=== PATIENT | female | born 1950 | race Caucasian/White ===

== ENCOUNTER 2017-10-17 11:25 | Observation (INO) | payer OTHER, MEDICARE ==
[~2017-10-17] VITALS: Ht 170.2 cm; Wt 49.9 kg
[~2017-10-17 11:25] MED LIST: TAMIFLU75 MG PO
--- NOTE | 2017-10-17 11:28 | ED SYNCOPE COMPLAINT ---
History of Present Illness General Chief Complaint: Syncope and Near-Syncope Stated Complaint: BIBA WITH A SYNCOPE Allergies Coded Allergies: NO KNOWN ALLERGIES (05/21/13) Reconcile Medications Oseltamivir Phosphate (Tamiflu) 75 MG CAP 1 TAB PO BID INFLUENZA (Thomas Ingram) Past History Travel History Traveled to [place] past 21 day No Medical History Neurological: migraine Psychosocial History What is your primary language Greek (Thomas Ingram) Progress Plan of Care: Orders Procedure Date/time Status EKG 10/17 1127 Active (Thomas Ingram) Departure Departure Condition: Stable Referrals: Sahara Alanis MD (PCP/Family) Departure Forms: Customer Survey General Discharge Information (Thomas Ingram)
--- NOTE | 2017-10-17 11:33 | ED SYNCOPE COMPLAINT ---
History of Present Illness General Chief Complaint: Syncope and Near-Syncope Stated Complaint: BIBA WITH A SYNCOPE Source: patient, EMS Exam Limitations: no limitations Vital Signs & Intake/Output Vital Signs & Intake/Output Vital Signs Date Time Temp Pulse Resp B/P B/P Pulse O2 O2 Flow FiO2 Mean Ox Delivery Rate 10/17 1539 84 18 106/45 96 10/17 1348 94 10/17 1324 77 101/52 10/17 1257 98/66 10/17 1214 95 Room Air 10/17 1151 97.8 82 22 84/62 98 Room Air Allergies Coded Allergies: NO KNOWN ALLERGIES (05/21/13) Reconcile Medications Nicotine (Nicotine Patch) 14 MG/24 HOUR PATCH.TD24 14 MG TOP DAILY SMOKING CESSATION Oseltamivir Phosphate (Tamiflu) 75 MG CAPSULE 1 CAP PO BID FLU LIKE SYMPTOMS (Reported) Triage Nurses Notes Reviewed? yes Timing: single episode today Precipitating Factors: lightheadedness Context: PATIENT WAS CHECKING OUT IN LINE AT [employer] Loss of Consciousness: brief (seconds) Associated Symptoms: weakness HPI: This is a 67-year-old female who denies any past medical history who presents via EMS after syncopal episode in the grocery store today. Patient doesn't even recall getting out of her car. According to bystanders she had a witnessed syncopal episode and hit her head. No blood thinners or any daily medications. Patient admits to feeling cold and having chills and cough for the past 2 days. He was noted on her EMR that she had picked up Yesterday. She denies any productive cough. She is a daily smoker. Question with history of COPD. Past History Travel History Traveled to [place] past 21 day No Medical History Any Pertinent Medical History? see below for history Neurological: migraine Surgical History Surgical History: non-contributory Psychosocial History What is your primary language Italian Family History Hx Contributory? No Review of Systems Review of Systems Constitutional: Reports: chills, fever, malaise, weakness. EENTM: Reports: no symptoms. Respiratory: Reports: cough, short of breath. Denies: sputum production. Cardiovascular: Denies: chest pain. GI: Denies: abdominal pain. Genitourinary: Reports: no symptoms. Musculoskeletal: Denies: back pain. Skin: Reports: no symptoms. Neurological/Psychological: Reports: no symptoms. All Other Systems: Reviewed and Negative Physical Exam Physical Exam General Appearance: alert, awake, cachetic, mild distress, thin, SALLOW APPEARANCE Head: OCCIPITAL HEMATOMA Eyes: Bilateral: normal appearance, PERRL, EOMI. Ears, Nose, Throat: normal pharynx, normal ENT inspection, hearing grossly normal Neck: IN C COLLAR Respiratory: normal breath sounds, chest non-tender, no respiratory distress Cardiovascular: regular rate/rhythm, normal peripheral pulses Gastrointestinal: normal bowel sounds, soft, non-tender Back: normal inspection, normal range of motion Extremities: normal inspection, normal capillary refill, normal range of motion, no edema Psychiatric: awake, alert, oriented x 3 Cranial Nerves: normal hearing, normal speech, PERRL Motor/Sensory: no motor/sensory deficits Core Measures ACS in differential dx? Yes CVA/TIA Diagnosis: No Sepsis Present: No Sepsis Focused Exam Completed? No Progress Differential Diagnosis: SYNCOPE, ORTHOSTATIC, ICH, CERVICAL FX, INFLUENZA, PNEUMONIA, SEPSIS Plan of Care: Orders Procedure Date/time Status Regular Diet 10/18 B Active Regular Diet 10/17 D Complete Patient Data 10/[address] in observation 10/17 1611 Active ED Holding Orders 10/17 1611 Active Vital Signs 10/17 1611 Active Code Status 10/17 1611 Active LACTIC ACID 10/17 1432 Active Add-on Test (ER Only) 10/17 1344 Active RT ED ORDERS 10/17 1339 Complete Add-on Test (ER Only) 10/17 1308 Active TROPONIN LEVEL 10/17 1220 Complete D-DIMER 10/17 1220 Complete PARTIAL THROMBOPLASTIN TIME 10/17 1134 Complete PROTHROMBIN TIME 10/17 1134 Complete Telemetry/Transport Conductor 10/17 1132 Active RAPID VIRAL INFLUENZA A 10/17 1132 Complete BLOOD CULTURE 10/17 1132 Active VIRAL CULTURE 10/17 1132 Active URINE DRUGS OF ABUSE 10/17 1132 Active URINALYSIS 10/17 1132 Active LACTIC ACID 10/17 1132 Complete ETHANOL 10/17 1132 Complete COMPREHENSIVE METABOLIC PANEL 10/17 1132 Complete CBC WITHOUT DIFFERENTIAL 10/17 1132 Complete EKG 10/17 1127 Active Current Medications Sig/Susana Start time Last Medication Dose Stop Time Status Admin Oseltamivir Phosphate 30 MG BID 10/17 1352 AC (Tamiflu) 10/21 1351 Laboratory Tests 10/17/17 1220: Anion Gap 15, Estimated GFR > 60, BUN/Creatinine Ratio 25.0, Glucose 94, Lactic Acid 2.0, Calcium 8.9, Total Bilirubin 0.6, AST 24, ALT 22, Alkaline Phosphatase 80, Troponin I < 0.01, Total Protein 7.2, Albumin 4.4, Globulin 2.8, Albumin/ Globulin Ratio 1.6, PT 11.9, INR 1.13, APTT 27, D-Dimer High Sensitivty 350 H, CBC w Diff NO MAN DIFF REQ, RBC 4.51, MCV 97.7, MCH 33.3 H, MCHC 34.1, RDW 12.8 , MPV 9.1, Gran % 73.3, Lymphocytes % 16.7 L, Monocytes % 9.9 H, Eosinophils % 0.1, Basophils % 0, Absolute Granulocytes 3.8, Absolute Lymphocytes 0.9 L, Absolute Monocytes 0.5, Absolute Eosinophils 0, Absolute Basophils 0, Serum Alcohol < 10.0 10/17/17 1132: Virus Culture Pending Microbiology 10/17 1320 NASOPHARYN: Influenza Virus A & B Rapid Smear - COMP INFLUENZA TYPE B 10/17 1200 BLOOD: Blood Culture - RECD 10/17 1137 BLOOD: Blood Culture - RECD 2:46 PM PENDING TELE OBS APPROVAL. Diagnostic Imaging: Viewed by Me: Radiology Read, CT Scan. Discussed w/RAD: Radiology Read, CT Scan. Radiology Impression: PATIENT: PAIGE GARDNER PRESENT AGE: 67 PATIENT ACCOUNT NO: [id number] : 50 LOCATION: [facility] ORDERING PHYSICIAN: Seda Ontiveros MD SERVICE DATE: 10/17/17 EXAM TYPE: CAT - CT CERV SPINE WO IV CONTRAST; CT HEAD WO IV CONTRAST EXAMINATION: CT HEAD AND CT OF THE CERVICAL SPINE WITHOUT CONTRAST CLINICAL INFORMATION: History of fall, syncope. Occipital hematoma. Headache. COMPARISON: None. TECHNIQUE: Noncontrast CT scan of the head and cervical spine, using standard protocol. Multiplanar reconstructed images are obtained. Multiplanar reconstructed images are also obtained. DLP: 947.98 mGy-cm. FINDINGS: CT OF THE HEAD: The ventricles are moderately enlarged and appear somewhat disproportionately prominent as compared to the overlying sulci. Differential includes moderate atrophy versus normal pressure hydrocephalus. No evidence of intra-axial mass, mass effect, extra-axial fluid collection, midline shift, acute intraparenchymal hemorrhage and/or acute infarction present. Both orbital globes, extraocular muscles, optic nerves appear bilaterally symmetric and are unremarkable. Small air-fluid level is noted within the left maxillary sinus, sphenoid sinus and mild soft tissue thickening within the nasal cavity. Differential includes intrasinus hemorrhage related to trauma versus acute sinusitis. CT OF THE CERVICAL SPINE: Multilevel degenerative spondylosis related changes are noted throughout the entire cervical spine with evidence of bilateral fusion of facet joints at C2-3. Significant facet degenerative arthritic changes are noted within the remainder of the cervical spine. There is nonspecific straightening of the cervical spine present. There is no evidence of any prespinal soft tissue hematoma present. Emphysematous disease is noted at both lung apices with superimposed nonspecific pleuroparenchymal opacity at right lung apex, not optimally characterized. Note is also made of numerous oval-shaped soft tissue densities throughout the soft tissue neck bilaterally, may represent prominent vessels versus lymph nodes. Further differentiation cannot be made on this nonenhanced study. IMPRESSION: 1. No acute intracranial pathology. Ventriculomegaly, appears somewhat disproportionate to the sulcal prominence, may represent moderate atrophy versus normal pressure hydrocephalus. 2. No CT evidence of any acute fracture no subluxation or dislocation or prespinal soft tissue hematoma present at the cervical spine. 3. Emphysematous disease within the visualized both lung apices with superimposed nonspecific pleuroparenchymal opacity at right lung apex, not optimally characterized. 4. Numerous oval-shaped soft tissue densities are noted within the neck bilaterally, may represent prominent vessels versus lymph nodes. Further differentiation cannot be made on this nonenhanced study. DICTATED BY: Rita Byrne MD DATE/TIME DICTATED:10/17/171245 TRANSMISSION AND COORDINATION ENGINEER:DIEGO DATE/TIME TRANSCRIBED:10/17/171245 CONFIDENTIAL, DO NOT COPY WITHOUT APPROPRIATE AUTHORIZATION. <Electronically signed in Other Vendor System> SIGNED BY: Rita Byrne MD 10/17/17 1330 CXR Impression: PATIENT: PAIGE GARDNER PRESENT AGE: 67 PATIENT ACCOUNT NO: [id number] : 50 LOCATION: [facility] ORDERING PHYSICIAN: Seda Ontiveros MD SERVICE DATE: 10/17/171132 EXAM TYPE: RAD - XRY -PORTABLE CHEST XRAY EXAMINATION: XR PORTABLE CHEST CLINICAL INFORMATION: Rule out pneumonia. Cough and right ureters. COMPARISON: There are no prior studies for comparison at this time. TECHNIQUE: Portable frontal view of the chest was obtained. FINDINGS: The lungs are hyperinflated. No focal areas of airspace opacification are noted. There is no evidence of pleural effusion or pulmonary vascular congestion or cardiomegaly. IMPRESSION: No acute cardiopulmonary findings. DICTATED BY: Abby Morales MD DATE/TIME DICTATED:10/17/171405 TRANSMISSION AND COORDINATION ENGINEER:DIEGO DATE/TIME TRANSCRIBED:10/17/171405 CONFIDENTIAL, DO NOT COPY WITHOUT APPROPRIATE AUTHORIZATION. <Electronically signed in Other Vendor System> SIGNED BY: Abby Morales MD 10/17/17 1411 Initial ED EKG: NSR Rhythm Strip: normal sinus rhythm Departure Departure Time of Disposition: 161 Disposition: STILL A PATIENT Condition: Stable Clinical Impression Primary Impression: Syncope and collapse Secondary Impressions: Concussion, Influenza A, Lactic acidosis Referrals: Sahara Alanis MD (PCP/Family) Departure Forms: Customer Survey General Discharge Information Prescriptions: Current Visit Scripts Nicotine (Nicotine Patch) 14 MG TOP DAILY #2 BOX Observation Note Spoke With: Maurilio VILLALPANDO,[facility] Physician Advisor Notified: KAREN ANDREA DO Place Patient In: Non-ED OBS Care Area Rationale for Observation: My rational for observation is as follows [TELE MONITOR, SERIAL EKG/TROPONIN, TAMIFLU, TRC/NEBS, CARDIOLOGY CONSULTATION. I FEEL PATIENT APPEARS STABLE FOR DISCHARGE IN 24-48 HRS IF CARDIAC W/U NEGATIVE. SHE HAS ALREADY HAD 2 DOSES OF TAMIFLU PRIOR TO ED VISIT].
[2017-10-17 12:35] LABS: ABSOLUTE BASOPHIL COUNT 0 /CUMM (0.0-0.2); ABSOLUTE EOSINOPHIL COUNT 0 /CUMM (0.0-0.7); ABSOLUTE GRANULOCYTE CT 3.8 /CUMM (1.4-6.5); ABSOLUTE LYMPH COUNT 0.9 /CUMM (1.2-3.4); ABSOLUTE MONOCYTE COUNT 0.5 /CUMM (0.10-0.60); BASOPHIL % 0 % (0.0-2.0); EOSINOPHIL % 0.1 % (0-5); GRANULOCYTE % 73.3 % (42.2-75.2); MEAN CORPUSCULAR HGB 33.3 PG (27.0-31.0); MEAN CORPUSCULAR HGB CONC 34.1 G/DL (33.0-37.0); MEAN CORPUSCULAR VOLUME 97.7 FL (81.0-99.0); MEAN PLATELET VOLUME 9.1 FL (7.4-10.4); PLATELET COUNT 149 /CUMM (130-400); RBC DISTRIBUTION WIDTH 12.8 % (11.5-14.5); RED BLOOD CELL CT 4.51 /CUMM (4.20-5.40); WHITE BLOOD CELL COUNT 5.3 /CUMM (4.8-10.8)
[2017-10-17 13:01] LABS: PT 11.9 SEC (9.4-12.5); PTT 27 SEC (25-37)
--- NOTE | 2017-10-17 13:30 | CT SCAN REPORT ---
EXAMINATION: CT HEAD AND CT OF THE CERVICAL SPINE WITHOUT CONTRAST CLINICAL INFORMATION: History of fall, syncope. Occipital hematoma. Headache. COMPARISON: None. TECHNIQUE: Noncontrast CT scan of the head and cervical spine, using standard protocol. Multiplanar reconstructed images are obtained. Multiplanar reconstructed images are also obtained. DLP: 947.98 mGy-cm. FINDINGS: CT OF THE HEAD: The ventricles are moderately enlarged and appear somewhat disproportionately prominent as compared to the overlying sulci. Differential includes moderate atrophy versus normal pressure hydrocephalus. No evidence of intra-axial mass, mass effect, extra-axial fluid collection, midline shift, acute intraparenchymal hemorrhage and/or acute infarction present. Both orbital globes, extraocular muscles, optic nerves appear bilaterally symmetric and are unremarkable. Small air-fluid level is noted within the left maxillary sinus, sphenoid sinus and mild soft tissue thickening within the nasal cavity. Differential includes intrasinus hemorrhage related to trauma versus acute sinusitis. CT OF THE CERVICAL SPINE: Multilevel degenerative spondylosis related changes are noted throughout the entire cervical spine with evidence of bilateral fusion of facet joints at C2-3. Significant facet degenerative arthritic changes are noted within the remainder of the cervical spine. There is nonspecific straightening of the cervical spine present. There is no evidence of any prespinal soft tissue hematoma present. Emphysematous disease is noted at both lung apices with superimposed nonspecific pleuroparenchymal opacity at right lung apex, not optimally characterized. Note is also made of numerous oval-shaped soft tissue densities throughout the soft tissue neck bilaterally, may represent prominent vessels versus lymph nodes. Further differentiation cannot be made on this nonenhanced study. IMPRESSION: 1. No acute intracranial pathology. Ventriculomegaly, appears somewhat disproportionate to the sulcal prominence, may represent moderate atrophy versus normal pressure hydrocephalus. 2. No CT evidence of any acute fracture no subluxation or dislocation or prespinal soft tissue hematoma present at the cervical spine. 3. Emphysematous disease within the visualized both lung apices with superimposed nonspecific pleuroparenchymal opacity at right lung apex, not optimally characterized. 4. Numerous oval-shaped soft tissue densities are noted within the neck bilaterally, may represent prominent vessels versus lymph nodes. Further differentiation cannot be made on this nonenhanced study.
--- NOTE | 2017-10-17 14:11 | RADIOLOGY REPORT ---
EXAMINATION: XR PORTABLE CHEST CLINICAL INFORMATION: Rule out pneumonia. Cough and right ureters. COMPARISON: There are no prior studies for comparison at this time. TECHNIQUE: Portable frontal view of the chest was obtained. FINDINGS: The lungs are hyperinflated. No focal areas of airspace opacification are noted. There is no evidence of pleural effusion or pulmonary vascular congestion or cardiomegaly. IMPRESSION: No acute cardiopulmonary findings.
--- NOTE | 2017-10-17 17:14 | History & Physical ---
Nancy Quinonez MD 10/17/17 1632: General Information and HPI MD Statement: I have seen and personally examined PAIGE GARDNER and documented this H&P. The patient is a 67 year old F who presented with a patient stated chief complaint of [syncope]. Source of Information: patient Exam Limitations: no limitations History of Present Illness: Patient is a 67-year-old female with no past medical history per patient presenting with chief complaint of fainting. Patient states that she started feeling ill 2 days prior to admission. States that she initially had a productive cough with clear phlegm, rhinorrhea, chest congestion. Patient states one day prior to admission she started feeling worse with subjective fever, chills shortness of breath and body aches. Patient states that she was not checked or the flu however was prescribed Tamiflu by a family member which she started one day prior to admission. Patient states that she has taken 2 doses of Tamiflu prior to coming to the hospital. Patient states she came to the emergency room after she had gone to the grocery store and had fainted. Patient notes that she felt lightheaded at the grocery store and felt dizzy and short of breath prior to passing out. Patient at that time was lifting groceries out of the basket and bending down. Patient denies any chest pain, palpitations, visual disturbances, numbness or tingling or feeling of warmth prior to the episode. Patient notes that she hit her head and has a small bump on the back of her head. Patient denies any bleeding or cuts/scraps. Patient is unsure of how long she was unconscious. Patient denies any confusion after the episode. Denies any metallic taste in her mouth or urinary or fecal incontinence. Patient is unsure if she had any tremors or shaking during the episode. Patient states that she has been eating well and trying to stay hydrated. Patient states that she ate breakfast prior to going to the grocery store. Patient denies any sick contacts at home or at work. Patient works at an accounting office. Patient smokes cigarettes approximately 1 pack per day for the past 51 years. Patient states that she drinks alcohol occasionally approximately once a month. Patient denies any use use of any recreational drugs. Past medical history: Patient denies any medical illnesses in the past Past surgical history: None Medications: Tamiflu, [id number] vitamin C, biotin Allergies: Denies any drug, food, or environmental allergies Patient's primary care physician is Dr. Alanis. Allergies/Medications Allergies: Coded Allergies: NO KNOWN ALLERGIES (05/21/13) Home Med list Nicotine (Nicotine Patch) 14 MG/24 HOUR PATCH.TD24 14 MG TOP DAILY SMOKING CESSATION Oseltamivir Phosphate (Tamiflu) 75 MG CAPSULE 1 CAP PO BID FLU LIKE SYMPTOMS (Reported) Past History Travel History Traveled to [place] past 21 day No Medical History Neurological: migraine Surgical History Surgical History: none Past Family/Social History Psychosocial History ETOH Use: occasional use Functional Ability ADLs Independent: dressing, eating, toileting, bathing. Ambulation: independent IADLs Independent: shopping, housework, finances, food prep, telephone, transportation , medication admin. Employment History Employment Employed Review of Systems Review of Systems Constitutional: Reports: chills, diaphoresis, fever, weakness. Cardiovascular: Reports: syncope. Denies: chest pain, edema, orthopena, palpitations, peripheral edema. Respiratory: Reports: cough, short of breath, sputum production. Denies: hemoptysis. GI: Reports: bowel incontinence. Genitourinary: Reports: no symptoms. Musculoskeletal: Reports: muscle pain. Skin: Reports: no symptoms. Neurological/Psychological: Reports: see HPI, headache. Hematologic/Endocrine: Reports: no symptoms. Immunologic/Allergic: Reports: no symptoms. Exam & Diagnostic Data Last 24 Hrs of Vital Signs/I&O Vital Signs Date Time Temp Pulse Resp B/P B/P Pulse O2 O2 Flow FiO2 Mean Ox Delivery Rate 10/17 1539 84 18 106/45 96 10/17 1348 94 10/17 1324 77 101/52 10/17 1257 98/66 10/17 1214 95 Room Air 10/17 1151 97.8 82 22 84/62 98 Room Air Intake & Output 10/17 1600 10/17 0800 10/17 0000 Intake Total 1000 Output Total Balance 1000 Intake, IV 1000 Patient 110 lb Weight Weight Reported by Patient Measurement Method Physical Exam General Appearance Alert, Oriented X3, Cooperative, No Acute Distress Skin No Rashes, No Breakdown, No Significant Lesion Sepsis Skin Exam (color): Normal for Ethnicity HEENT Atraumatic, PERRLA, EOMI, Mucous Membr. moist/pink Neck Supple, No JVD, No thryomegaly, +2 Carotid Pulse wo Bruit, No LAD Lymphatic Cervical nl Cardiovascular Regular Rate, Normal S1, Normal S2, No Murmurs Lungs Clear to Auscultation, Normal Air Movement Abdomen Normal Bowel Sounds, Soft, No Tenderness Neurological Normal Gait, Normal Speech, Strength at 5/5 X4 Ext, Sensation Intact, Cranial Nerves 3-12 NL Extremities No Clubbing, No Cyanosis, No Edema, Normal Pulses, No Tenderness/ Swelling Vascular Normal Pulses, Pulses Symmetrical Last 24 Hrs of Labs/Faisal: Laboratory Tests 10/17/17 1220: Anion Gap 15, Estimated GFR > 60, BUN/Creatinine Ratio 25.0, Glucose 94, Lactic Acid 2.0, Calcium 8.9, Total Bilirubin 0.6, AST 24, ALT 22, Alkaline Phosphatase 80, Troponin I < 0.01, Total Protein 7.2, Albumin 4.4, Globulin 2.8, Albumin/ Globulin Ratio 1.6, PT 11.9, INR 1.13, APTT 27, D-Dimer High Sensitivty 350 H, CBC w Diff NO MAN DIFF REQ, RBC 4.51, MCV 97.7, MCH 33.3 H, MCHC 34.1, RDW 12.8 , MPV 9.1, Gran % 73.3, Lymphocytes % 16.7 L, Monocytes % 9.9 H, Eosinophils % 0.1, Basophils % 0, Absolute Granulocytes 3.8, Absolute Lymphocytes 0.9 L, Absolute Monocytes 0.5, Absolute Eosinophils 0, Absolute Basophils 0, Serum Alcohol < 10.0 10/17/17 1132: Virus Culture Pending Microbiology 10/17 1320 NASOPHARYN: Influenza Virus A & B Rapid Smear - COMP INFLUENZA TYPE B 10/17 1200 BLOOD: Blood Culture - RECD 10/17 1137 BLOOD: Blood Culture - RECD Diagnostic Data EKG Results Normal sinus rhythm with heart rate of 78, left axis deviation, nonspecific T- wave changes, T wave inversion in V2 Assessment/Plan Assessment: Patient is a 67-year-old female with no past medical history presenting after having a syncopal episode at the grocery store and having symptoms consistent with the flu with a rapid flu swab positive for influenza type B on this admission currently on Tamiflu day 2. Patient presented with hypotension and tachypnea with respiration rate of greater than 20. Patient responded to 2 1L normal saline boluses. Patient's chest x-ray and head CT were negative for any acute findings. Patient in the ED received 1 L normal saline 2, DuoNeb treatment, IV Solu- Medrol 125 mg 1, Tamiflu 30 mg, Tylenol 975 mg by mouth 1 On admission: Vitals: MAXIMUM TEMPERATURE of 97.8, heart rate: 84, respiration rate: 18, blood pressure: Initially 84/62 which increased to 106/45 after 2 L normal saline boluses, saturating at 96% on room air Labs: WBC: 5.3, H&H 15.0 and 44.0, platelets 149 Sodium: 137, potassium 4.2 chloride 99, bicarbonate 23, BUN 20, creatinine 0.8, glucose 94, lactic acid 2.0, calcium 8.9, LFTs within normal limits, troponin less than 0.01, dimer 350, serum alcohol less than 10.0, Flu swab: Patient positive for influenza type B Imaging: Chest x-ray: No acute cardiopulmonary findings Head CT and neck CT: 1. No acute intracranial pathology. Ventriculomegaly, appears somewhat disproportionate to the sulcal prominence, may represent moderate atrophy versus normal pressure hydrocephalus. 2. No CT evidence of any acute fracture no subluxation or dislocation or prespinal soft tissue hematoma present at the cervical spine. 3. Emphysematous disease within the visualized both lung apices with superimposed nonspecific pleuroparenchymal opacity at right lung apex, not optimally characterized. 4. Numerous oval-shaped soft tissue densities are noted within the neck bilaterally, may represent prominent vessels versus lymph nodes. Further differentiation cannot be made on this nonenhanced study. Patient will be observed on the telemetry floor for the followin. Syncope- likely related to dehydration and the flu. Patient presented with hypotension and tachypnea responding to fluids. Other causes of syncope include neurocardiogenic causes which should be ruled out and patient will be observed on telemetry. Patient's current EKG shows nonspecific T wave changes with negative trops. - continue to monitor on telemetry - serial EKG and trops - IV fluid hydration - orthostatic vitals - neurochecks q4h 2. Influenza Type B - Patient tested positive for influenza. Patient was presumptively placed on tamiflu 1 day prior to this admission. - Tamiflu 30mg BID - TRC - Respiratory precautions 3. Current smoker - 50+ pack year smoking history. CT neck showing soft tissue densities which may represent lymphadenopathy. However this may be reactive lymphadenopathy secondary to viral infection. Patient should follow up with her pcp for further evaluation once her acute symptoms resolve. DVT PPx: ALPS, lovenox Diet: Regular Code: Full Code As Ranked By This Provider Problem List: 1. Syncope and collapse 2. Influenza due to influenza virus, type B Core Measures/Misc (05/27) Acute Coronary Syndrome ACS Diagnosis: No Congestive Heart Failure Congestive Heart Failure Diagnosis No Cerebrovascular Accident CVA/TIA Diagnosis: No VTE (View Protocol) VTE Risk Factors No risk factors No Mechanical VTE Prophylaxis d/t N/A MechProphylax Ordered No VTE Pharm Prophylaxis d/t NA PharmProphylax ordered Sepsis (View protocol) Sepsis Present: No Yonatan Mohr MD 10/17/17 1730: Resident Review Statement Resident Statement: examined this patient, discussed with investigator internal affairs, agreed with investigator internal affairs, reviewed EMR data (avail), discussed with nursing, discussed with case mgmt, reviewed images, amended to note Other Findings: 67-year-old female with no significant past medical history, presented to the emergency department via ambulance after having a witnessed syncopal episode at the grocery store today. Patient remembers the event as feeling lightheaded and dizzy, and then she does not remember afterwards. She hit the back of her head during the event, and is now complaining of pain and some swelling in her scalp. She does not have any vision changes, difficulty with speech or understanding, any numbness/tingling/weakness of any part of her body, or incontinence. Of note, she did mention that she had some stool leakage while she was in the ED. There was no tongue bite, up rolling of eyes, falling from mouth, jerking movements of limbs noted during the incident. She does not take any blood thinners and her only medication is Vitamin C and Biotin, except for 2 doses of Tamiflu so far. Also, patient mentioned that she was suffering from cough and shortness of breath since Sunday, associated with body ache, and was taking Tamiflu since yesterday (total 2 doses taken so far). She has been eating and drinking well at home. Patient's primary care physician is Dr. Alanis, but the last time she visited the PCP was 2 years ago. Her vitals on presentation were blood pressure 84/62, pulse 82, temperature 97.8 , respiration 22, SPO2 98% on room air. She received 2 L of normal saline, and 125 mg of IV methylprednisolone, and nebulizations in the ED. CAT scan of the head was negative for any acute intracranial pathology. No CT evidence of any acute fracture or subluxation or dislocation or soft tissue hematoma at cervical spine level. CXR is negative for acute pathology. She is currently being observed in telemetry floor for the following issues: # Syncope Patient's symptoms are suggestive of syncope with loss of consciousness. Syncope itself has broad differential diagnosis for the most important ones being Cardiologic, neurological or the common ones like orthostatic hypotension. She will need further monitoring and regular checks in the telemetry unit. * Observe in telemetry floor * Regular vitals, input/output * Regular neurochecks * Watch for any arrhythmias * Transient troponin and EKG for at least 2 times. Of note, the first one is negative. * Further neurodiagnostic testing or cardiology testing are deferred unless patient develops focal neurologic deficit or changes in EKG/trop. #Nicotine dependence Patient has a long-standing history of smoking starting at the age of 16, and with at least a pack per day, minutes to at least [id number] of smoking history. This puts her at increased risk of any cancer, particularly lung cancers. She was noted to have cervical lymphadenopathy, and would benefit from a screening CAT scan of the lung/neck. Orders have been placed accordingly please follow. In the meantime, nicotine patch has been ordered. #Influenza type B infection We'll continue Tamiflu started from her home, and have her on appropriate precautions. #Diet: Regular diet #DVT ppx: SC Lovenox #Code status: Full code
--- NOTE | 2017-10-17 17:35 | PN- Att Addend ---
Attending Addendum Attending Brief Note Patient seen and examined. Plan of care discussed with the medical team and the patient. Available lab work and radiology test reports were reviewed. Patient seen and examined in the emergency room. Patient 67-year-old female with past history of migraine and one pack per day smoking history who presents with the 4 -5 days history of fever, cough, chills. She did not receive a flu shot last fall. Today while shopping she had a brief episode of for him to be. Amylase was called and she was transported to emergency room. She does not recall hitting her head. See interns history physical for past medical history, psychosocial history and medication history. Family history was reviewed and is noncontributory. As noted above patient smokes one pack per day. Vital Signs Date Time Temp Pulse Resp B/P B/P Pulse O2 O2 Flow FiO2 Mean Ox Delivery Rate 10/17 1539 84 18 106/45 96 10/17 1348 94 10/17 1324 77 101/52 10/17 1257 98/66 10/17 1214 95 Room Air 10/17 1151 97.8 82 22 84/62 98 Room Air Intake & Output 10/17 1600 10/17 0800 10/17 0000 Intake Total 1000 Output Total Balance 1000 Intake, IV 1000 Patient 110 lb Weight Weight Reported by Patient Measurement Method Exam: General: Patient awake alert oriented without any distress CVS: S1 plus S2 without any murmur or gallops Chest: Few scattered crepitation without any wheeze in left lower chest. There is no respiratory distress. Abdomen: Soft non-tender, bowel sound present, no guarding or rebound APPOINTMENT MANAGER: Awake alert oriented without any focal neuro deficit and follows commands appropriately Extremities: No edema; no clubbing or cyanosis noted; no sign of trauma Laboratory Tests 10/17 10/17 1220 1132 Chemistry Sodium (137 - 145 mmol/L) 137 Potassium (3.5 - 5.1 mmol/L) 4.2 Chloride (98 - 107 mmol/L) 99 Carbon Dioxide (22 - 30 mmol/L) 23 Anion Gap (5 - 16) 15 BUN (7 - 17 mg/dL) 20 H Creatinine (0.5 - 1.0 mg/dL) 0.8 Estimated GFR (>60 ml/min) > 60 BUN/Creatinine Ratio (7 - 25 %) 25.0 Glucose (65 - 99 mg/dL) 94 Lactic Acid (0.7 - 2.1 mmol/L) 2.0 Calcium (8.4 - 10.2 mg/dL) 8.9 Total Bilirubin (0.2 - 1.3 mg/dL) 0.6 AST (14 - 36 U/L) 24 ALT (9 - 52 U/L) 22 Alkaline Phosphatase (<127 U/L) 80 Troponin I (< 0.11 ng/ml) < 0.01 Total Protein (6.3 - 8.2 g/dL) 7.2 Albumin (3.5 - 5.0 g/dL) 4.4 Globulin (1.9 - 4.2 gm/dL) 2.8 Albumin/Globulin Ratio (1.1 - 2.2 %) 1.6 Coagulation PT (9.4 - 12.5 SEC) 11.9 INR (0.90 - 1.19) 1.13 APTT (25 - 37 SEC) 27 D-Dimer High Sensitivty (0 - 243 ng/ml) 350 H Hematology CBC w Diff NO MAN DIFF REQ WBC (4.8 - 10.8 /CUMM) 5.3 RBC (4.20 - 5.40 /CUMM) 4.51 Hgb (12.0 - 16.0 G/DL) 15.0 Hct (37 - 47 %) 44.0 MCV (81.0 - 99.0 FL) 97.7 MCH (27.0 - 31.0 PG) 33.3 H MCHC (33.0 - 37.0 G/DL) 34.1 RDW (11.5 - 14.5 %) 12.8 Plt Count (130 - 400 /CUMM) 149 MPV (7.4 - 10.4 FL) 9.1 Gran % (42.2 - 75.2 %) 73.3 Lymphocytes % (20.5 - 51.1 %) 16.7 L Monocytes % (1.7 - 9.3 %) 9.9 H Eosinophils % (0 - 5 %) 0.1 Basophils % (0.0 - 2.0 %) 0 Absolute Granulocytes (1.4 - 6.5 /CUMM) 3.8 Absolute Lymphocytes (1.2 - 3.4 /CUMM) 0.9 L Absolute Monocytes (0.10 - 0.60 /CUMM) 0.5 Absolute Eosinophils (0.0 - 0.7 /CUMM) 0 Absolute Basophils (0.0 - 0.2 /CUMM) 0 Serology Virus Culture Pending Toxicology Serum Alcohol (<10 MG/DL) < 10.0 Microbiology Date/Time Procedure - Status Source Growth 10/17 1320 Influenza Virus A & B Rapid Smear - COMP NASOPHARYN INFLUENZA TYPE B 10/17 1200 Blood Culture - RECD BLOOD 10/17 1137 Blood Culture - RECD BLOOD CT head and cervical spine 1. No acute intracranial pathology. Ventriculomegaly, appears somewhat disproportionate to the sulcal prominence, may represent moderate atrophy versus normal pressure hydrocephalus. 2. No CT evidence of any acute fracture no subluxation or dislocation or prespinal soft tissue hematoma present at the cervical spine. 3. Emphysematous disease within the visualized both lung apices with superimposed nonspecific pleuroparenchymal opacity at right lung apex, not optimally characterized. 4. Numerous oval-shaped soft tissue densities are noted within the neck bilaterally, may represent prominent vessels versus lymph nodes. Further differentiation cannot be made on this nonenhanced study. Chest x-ray Did not reveal any acute cardiopulmonary findings. Note that the influenza test was positive for type B. Assessment plan * Influenza- plan to start Tamiflu * Syncopal episode- likely secondary to influenza, fever and possibly dehydration. No signs of arrhythmia is noted. We'll place on telemetry to rule out any arrhythmia for at least 24 hours. * History of smoking- prescribe a nicotine patch * Possible lymph node enlargement in neck - given history of smoking since age [address] chest and neck with contrast to rule out underlying lung cancer.
[2017-10-17] MEDS ORDERED: TAMIFLU75 M1 PO (20:22)
[2017-10-17 21:06] VITALS: BP 82/48
[2017-10-17 21:08] VITALS: BP 82/48
[2017-10-18 06:09] VITALS: BP 100/57
--- NOTE | 2017-10-18 07:38 | PN-Observation ---
See Addendum Observation Note Observation Note _ I have personally examined PAIGE GARDNER. her disposition is uncertain at this time. Before a determination can be made, she requires continued observation for the following reasons [syncope]. Assessment/Plan Assessment: Patient is a 67-year-old female with no past medical history presenting after having a syncopal episode at the grocery store and having symptoms consistent with the flu with a rapid flu swab positive for influenza type B on this admission currently on Tamiflu day 2. Patient presented with hypotension and tachypnea with respiration rate of greater than 20. Patient responded to 2 1L normal saline boluses. Patient's chest x-ray and head CT were negative for any acute findings. Patient in the ED received 1 L normal saline 2, DuoNeb treatment, IV Solu- Medrol 125 mg 1, Tamiflu 30 mg, Tylenol 975 mg by mouth 1 On admission: Vitals: MAXIMUM TEMPERATURE of 97.8, heart rate: 84, respiration rate: 18, blood pressure: Initially 84/62 which increased to 106/45 after 2 L normal saline boluses, saturating at 96% on room air Labs: WBC: 5.3, H&H 15.0 and 44.0, platelets 149 Sodium: 137, potassium 4.2 chloride 99, bicarbonate 23, BUN 20, creatinine 0.8, glucose 94, lactic acid 2.0, calcium 8.9, LFTs within normal limits, troponin less than 0.01, dimer 350, serum alcohol less than 10.0, Flu swab: Patient positive for influenza type B Imaging: Chest x-ray: No acute cardiopulmonary findings Head CT and neck CT: 1. No acute intracranial pathology. Ventriculomegaly, appears somewhat disproportionate to the sulcal prominence, may represent moderate atrophy versus normal pressure hydrocephalus. 2. No CT evidence of any acute fracture no subluxation or dislocation or prespinal soft tissue hematoma present at the cervical spine. 3. Emphysematous disease within the visualized both lung apices with superimposed nonspecific pleuroparenchymal opacity at right lung apex, not optimally characterized. 4. Numerous oval-shaped soft tissue densities are noted within the neck bilaterally, may represent prominent vessels versus lymph nodes. Further differentiation cannot be made on this nonenhanced study. Patient will be observed on the telemetry floor for the followin. Syncope- likely related to dehydration and the flu. Patient presented with hypotension and tachypnea responding to fluids. Other causes of syncope include neurocardiogenic causes which should be ruled out and patient will be observed on telemetry. Patient's EKG and trops remained negative x 3. Patient had no events on telemetry. Patient's blood pressure improved with IV hydration. Patient noted she always remains borderline hypotensive. - Patient stable for discharge today 2. Influenza Type B - Patient tested positive for influenza. Patient was presumptively placed on tamiflu 1 day prior to this admission. - Patient to continue Tamiflu 30mg BID for a total of 5 days - TRC - Respiratory precautions 3. Current smoker - 50+ pack year smoking history. CT neck showing soft tissue densities which may represent lymphadenopathy. However this may be reactive lymphadenopathy secondary to viral infection. Patient should follow up with her pcp for further evaluation once her acute symptoms resolve. - Patient counseled on smoking cessation - Patient given nictoine patches - Patient will start attending smoking cessation classes on 10/24. 3. Migraine - patient reports occasional migraines - 2 to 3 per year. During this admission she experienced a migraine with nausea and vomitting which resolved with fiorcet. -Patient should follow up with pcp if migraines continue or increase in frequency or severity DVT PPx: ALPS, lovenox Diet: Regular Code: Full Code Dispo: Discharge home today Problem List: 1. Syncope and collapse 2. Influenza due to influenza virus, type B Subjective Follow-up For: Syncopal episode Influenza Type B Subjective: Patient seen and examined today. Patient reports improvement in breathing. Denies feeling dizzy, lightheaded, short of breath, chest pain or palpitaitons. Patient denies any pain. Patient later in the day had some nausea and a severe headache with sensitivity to light and sound. Headache was around her forehead and eyes. No acute events overnight Review of Systems Constitutional: Reports: no symptoms. Cardiovascular: Reports: no symptoms. Respiratory: Reports: no symptoms. Gastrointestinal: Reports: nausea. Genitourinary: Reports: no symptoms. Musculoskeletal: Reports: no symptoms. Skin: Reports: no symptoms. Neurological/Psychological: Reports: headache. Hematologic/Endocrine: Reports: no symptoms. Immunologic/Allergic: Reports: no symptoms. Objective Last 24 Hrs of Vital Signs/I&O Vital Signs Date Time Temp Pulse Resp B/P B/P Pulse O2 O2 Flow FiO2 Mean Ox Delivery Rate 10/18 1439 97.9 68 18 102/64 95 Room Air 10/18 0609 97.6 72 20 100/57 96 10/18 0000 98 Room Air Room Air 10/178 72 82/48 10/17 210 98.1 72 18 82/48 94 10/17 2017 67 94/48 10/17 2016 97.6 67 16 94/48 92 Room Air Intake & Output 10/18 1600 10/18 0800 10/18 0000 Intake Total 500 200 175 Output Total Balance 500 200 175 Intake, IV 75 Intake, Oral 500 200 100 Patient 110 lb Weight Physical Exam General Appearance: Alert, Oriented X3, Cooperative, No Acute Distress HEENT: Atraumatic, PERRLA, EOMI, Mucous Membr. moist/pink Lymphatic: Cervical nl Cardiovascular: Regular Rate, Normal S1, Normal S2, No Murmurs Lungs: Clear to Auscultation, Normal Air Movement Abdomen: Normal Bowel Sounds, Soft, No Tenderness Neurological: Normal Gait, Normal Speech, Strength at 5/5 X4 Ext, Normal Tone, Sensation Intact, Cranial Nerves 3-12 NL Extremities: No Clubbing, No Cyanosis, No Edema, Normal Pulses, No Tenderness/ Swelling Vascular: Normal Pulses, Pulses Symmetrical Current Medications: Current Medications Sig/Susana Start time Last Medication Dose Route Stop Time Status Admin Acetaminophen 650 MG .STK-MED ONE 10/18 0302 DC PO 10/18 0303 Acetaminophen 650 MG Q6P PRN 10/17 1745 DC 10/18 PO 0305 Acetaminophen 1,000 MG Q6P PRN 10/17 1745 DCD 10/18 IV 0837 Acetaminophen/ 1 TAB Q4P PRN 10/18 1000 DCD 10/18 Butalbital/Caffeine PO 1013 Enoxaparin Sodium 40 MG DAILY 10/18 1000 DCD SC Naproxen 500 MG ONCE ONE 10/18 1000 CAN PO 10/18 1001 Nicotine 0 .STK-MED ONE 10/17 1900 DC TOP Nicotine 14 MG DAILY 10/17 1841 DCD 10/18 TOP 0841 Ondansetron HCl 4 MG ONCE ONE 10/18 1000 DC 08 IV 10/18 1001 1014 Oseltamivir Phosphate 30 MG BID 10/17 1352 DCD 10/18 PO 10/21 1351 0841 Sodium Chloride 500 ML BOLUS ONE 10/18 0745 DC 10/18 IV 10/18 0844 0845 Sodium Chloride 1,000 ML Q13H 10/17 1745 DC 10/17 IV 10/18 0644 1818 Last 24 Hrs of Labs/Mics: Laboratory Tests 10/18/17 0708: Anion Gap 9, Estimated GFR > 60, BUN/Creatinine Ratio 32.0 H 10/18/17 0059: Troponin I < 0.01 10/17/171923: Troponin I < 0.01 10/17/171919: Urine Opiates Screen < 100.00, Methadone Screen < 40, Barbiturate Screen < 60, Ur Phencyclidine Scrn < 6.00, Amphetamines Screen < 100, U Benzodiazepines Scrn < 85, Urine Cocaine Screen < 50, Urine Cannabis Screen < 5.00, Urine Color YEL, Urine Clarity CLEAR, Urine pH 6.0, Ur Specific [place] 1.025, Urine Protein NEG, Urine Ketones 15 H, Urine Nitrite NEG, Urine Bilirubin NEG, Urine Urobilinogen 0.2, Ur Leukocyte Esterase NEG, Ur Microscopic EXAM NOT REQUIRED, Urine Hemoglobin NEG, Urine Glucose NEG
--- NOTE | 2017-10-18 11:00 | Patient Discharge Instructions ---
Discharge Instructions General Discharge Information You were seen/treated for: Syncope Flu Migraine Special Instructions: 1. Please follow up with your pcp within 1 week of discharge. 2. Please take the tamiflu as prescribed 3. Please stay well hydrated Diet Continue normal diet: Yes Activity Full Activity/No Limits: No Activity Self Limited: Yes Acute Coronary Syndrome Inclusion Criteria At DC or during hospital stay patient has or had the following: ACS DIAGNOSIS No Discharge Core Measures Meds if any: Prescribed or Continued at Discharge Meds if any: NOT Prescribed or Continued at Discharge Congestive Heart Failure Inclusion Criteria At DC or during hospital stay patient has or had the following: CHF DIAGNOSIS No Discharge Core Measures Meds if any: Prescribed or Continued at Discharge Meds if any: NOT Prescribed or Continued at Discharge Cerebrovascular accident Inclusion Criteria At DC or during hospital stay patient has or had the following: CVA/TIA Diagnosis No Discharge Core Measures Meds if any: Prescribed or Continued at Discharge Meds if any: NOT Prescribed or Continued at Discharge Venous thromboembolism Inclusion Criteria VTE Diagnosis No VTE Type NONE VTE Confirmed by (Test) NONE Discharge Core Measures - Per Current guidelines, there needs to be overlap - treatment for the first 5 days of Warfarin therapy. - If discharged on Warfarin prior to 5 days of - overlap therapy, the patient will need to be - assessed for post discharge needs including - *Post discharge parental anticoagulation - *Warfarin and/or parental anticoagulation education - *Follow up date to check INR post discharge At least 5 days overlap therapy as Inpatient No Meds if any: Prescribed or Continued at Discharge Note: Overlap Therapy is Warfarin and Anticoagulant Meds if any: NOT Prescribed or Continued at Discharge
[2017-10-18 14:39] VITALS: BP 102/64
[2017-10-18] MEDS ORDERED: NICOTINE PATCH1 EAC2 TOP (15:42)
== END 2017-10-18 16:15 ==
LOC: ERH 11:25 → 1NO 16:11 → ERHI 16:11 → ENRESERV 19:19 → ENTRNSPT 20:19 → EDTRNSPTSTS 20:32 → 1NO 21:00 → CMPTRNSPT 21:04 → 1NO 10-18 08:41 → ENTRNSPT 10-18 16:11 → 1NO 10-18 16:15 → CMPTRNSPT 10-18 17:02 → EDTRNSPT 10-18 17:02
PROVIDERS: Emergency Medicine
DX: R55 Syncope and collapse (principal); J10.1 Influenza due to other identified influenza virus with other respiratory manifestations; I95.9 Hypotension, unspecified; R06.82 Tachypnea, not elsewhere classified; F17.200 Nicotine dependence, unspecified, uncomplicated; G43.909 Migraine, unspecified, not intractable, without status migrainosus
CPT/HCPCS: 1263; 36415; 71045; 80307; 81003; 82436; 87040; 87804; 87804-59; 93005; 93010; 96374; 96375; G0480; J1650; J2405; J2930; J7040